=== PATIENT | male | born 1990 | race Two or more races ===

== ENCOUNTER 2021-05-05 11:46 | Emergency (ER) | payer SELFPAY ==
[~2021-05-05] VITALS: Ht 170.2 cm; Wt 81.6 kg
[2021-05-05] MEDS ORDERED: LIDOCAINE 1% INJ 50 ML MDV IJ ONE (13:30)
[2021-05-05] MEDS ORDERED: TDAP [DIPH/PERTUSSIS/TET] 0.5 ML VIAL IM ONE ×2 (13:30→14:32)
[2021-05-05] MEDS ORDERED: BACITRACIN ZINC OINT PACKET 1 EA PACKET TP ONE (13:30)
--- NOTE | 2021-05-05 13:40 | NUR ---
LACERATION TO FOREHEAD,SLIPPED AND FELL GOING DOWN THE STAIRS,NO KO. RATES HEAD PAIN 5/10. RESPIRATION REGULAR AND UNLABORED. WILL CONTINUE TO MONITOR THE PATIENT.
[2021-05-05] MEDS ORDERED: CEPH500C2 PO (17:03)
[2021-05-05] MEDS ORDERED: IBUP-1955 PO (17:04)
[2021-05-05 17:15] VITALS: BP 134/75
--- NOTE | 2021-05-05 17:15 | NUR ---
Patient discharged to home in stable condition. Written and verbal after care instructions given. Patient verbalizes understanding of instruction.
== END 2021-05-05 17:16 | disposition home or self-care (01) ==
LOC: ER 11:48
DX: S01.01XA Laceration without foreign body of scalp, initial encounter (principal); W01.0XXA Fall on same level from slipping, tripping and stumbling without subsequent striking against object, initial encounter; Y93.89 Activity, other specified; Y92.89 Other specified places as the place of occurrence of the external cause; Y99.8 Other external cause status
CPT/HCPCS: 12004; 70450; 90471; 90715; 99284; A6403 ×2

== ENCOUNTER 2021-05-07 11:08 | Emergency (ER) | payer SELFPAY ==
[~2021-05-07] VITALS: Ht 182.9 cm; Wt 79.4 kg
[~2021-05-07 11:08] MED LIST: CEPH500C2 PO; IBUP-1955 PO
[2021-05-07 11:29] VITALS: BP 121/82
--- NOTE | 2021-05-07 11:32 | NUR ---
SEEN BY DR. PAYTON
--- NOTE | 2021-05-07 11:32 | NUR ---
Patient discharged to home in stable condition. Written and verbal after care instructions given. Patient verbalizes understanding of instruction.
== END 2021-05-07 11:33 | disposition home or self-care (01) ==
LOC: ER 11:12
DX: S01.01XD Laceration without foreign body of scalp, subsequent encounter (principal); X58.XXXD Exposure to other specified factors, subsequent encounter

== ENCOUNTER 2021-05-14 09:23 | Emergency (ER) | payer MEDICAID ==
[~2021-05-14] VITALS: Ht 182.9 cm; Wt 79.4 kg
[2021-05-14 09:28] VITALS: BP 141/80
--- NOTE | 2021-05-14 09:51 | NUR ---
CRISTIAN REMOVED. WOUND CARE PROVIDED. D/C IN STABLE CONDITION.
== END 2021-05-14 09:52 | disposition home or self-care (01) ==
LOC: ER 09:25
DX: S01.81XD Laceration without foreign body of other part of head, subsequent encounter (principal); X58.XXXD Exposure to other specified factors, subsequent encounter